=== PATIENT | male | born 1945 | race Caucasian/White ===

== ENCOUNTER 2017-09-26 11:06 | Observation (INO) | payer MEDICARE, OTHER ==
[2017-09-24 10:55] LABS: BASOPHILS % 0.5 % (0.0-1.0); EOSINOPHILS # (AUTO) 0.2 (0.0-0.4); EOSINOPHILS % 3.2 % (0.0-6.0); HEMOGLOBIN 14.5 g/dL (14.0-18.0); LYMPHOCYTES # (AUTO) 1.8 (1.0-3.2); LYMPHOCYTES % 30.2 % (18.0-39.1); MEAN CORPUSCULAR HEMOGLOBIN 30.1 pg (28-32); MEAN CORPUSCULAR VOLUME 91.3 fL (81-99); MONOCYTES # (AUTO) 0.4 (0.2-0.8); MONOCYTES % 7.3 % (4.4-11.3); NEUTROPHILS # (AUTO) 3.5 (2.1-6.9); NEUTROPHILS % 58.5 % (38.7-80.0); PLATELET COUNT 252 x10e3/uL (140-360); RED BLOOD COUNT 4.82 x10e6/uL (4.3-5.7); RED CELL DISTRIBUTION WIDTH 13.2 % (11.7-14.4)
[2017-09-24 11:09] LABS: INR 1.02; PROTHROMBIN TIME 12.6 seconds (11.9-14.5)
[2017-09-24 11:17] LABS: BLOOD UREA NITROGEN 22 mg/dL (7-26); BUN/CREATININE RATIO 19 (6-25); CALCIUM 9.2 mg/dL (8.4-10.2); CARBON DIOXIDE 27 mmol/L (22-29); CHLORIDE 106 mmol/L (98-107); CREATININE, SERUM 1.18 mg/dL (0.72-1.25); EST GLOMERULAR FILTRATION RATE > 60 ML/MIN (60-); GLUCOSE 117 mg/dL (74-118); SODIUM 140 mmol/L (136-145)
--- NOTE | 2017-09-24 11:23 | Diagnostic Imaging Report ---
PROCEDURE: Frontal and lateral views of the chest. COMPARISON: None. INDICATIONS: PRE OPERATIVE CHEST X-RAY FOR C-SPINE SURGERY FINDINGS: Lines/tubes: None. Lungs: There is no evidence of pneumonia or pulmonary edema. 1.9 cm curvilinear opacity is seen in the left upper lobe. Adjacent to this, a linear opacity may represent soft tissue calcifications. Streaky atelectasis in the lung bases. Pleura: There is no pleural effusion or pneumothorax. Heart and mediastinum: The heart and the mediastinum are normal. Bones: No acute bony abnormality. Multilevel spondylosis of the thoracic spine IMPRESSION: 1.9 cm curvilinear or nodular opacity in the left upper lobe. If there are no prior radiographs to ensure the stability of this lesion, recommend CT of the chest for further evaluation. Dictated by: Carlos Strong M.D. on 09/24/2017 at 11:24 Electronically approved by: Carlos Strong M.D. on 09/24/2017 at 11:24
[~2017-09-26] VITALS: Ht 172.7 cm; Wt 84.5 kg
[~2017-09-26 11:06] MED LIST: ACETAMINOPHEN 1000 MG/100 ML 100 ML IV ONE; BACITRACIN 50,000 UNIT VIAL ONE; BUPIVACAINE 0.5%/EPI 30 ML SDV INJ ONE; CEFAZOLIN SOD 1 GM VIAL ONE; GELATIN SPONGE SZ 100 ONE; LIDOCAINE HCL (LTA) 4 ML SOLN ONE; THROMBIN FOR SOLN 5,000 UNIT VIAL ONE; TRICOR145 MG PO
--- OUTSIDE RECORDS SUMMARY | 2017-09-26 11:09 | XMS REPORT ---
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 Allergies, Adverse Reactions, Alerts This patient has no known allergies or adverse reactions. Medications This patient has no known medications. Results Test Description Test Time Test Comments Text Results Atomic Results Result Comments CHEST 2 VIEWS [place] [address] Patient Name: DRAKE JASSO MR #: [id number] : 1945 Age/Sex: 71/M Req #: [id number] Adm Physician: Ordered by: STEVEN SINGLETARY MD Report #: [id number] Location: OR Room/Bed: Procedure: [id number] DX/CHEST 2 VIEWS Exam Date: 09/24/17 Exam Time: 1030 REPORT STATUS: Signed PROCEDURE: Frontal and lateral views of the chest. COMPARISON: None. INDICATIONS: PRE OPERATIVE CHEST X- RAY FOR C-SPINE SURGERY FINDINGS: Lines/tubes: None. Lungs: There is no evidence of pneumonia or pulmonary edema. 1.9 cm curvilinear opacity is seen in the left upper lobe. Adjacent to this, a linear opacity may represent soft tissue calcifications. Streaky atelectasis in the lung bases. Pleura: There is no pleural effusion or pneumothorax. Heart and mediastinum: The heart and the mediastinum are normal. Bones: No acute bony abnormality. Multilevel spondylosis of the thoracic spine IMPRESSION: 1.9 cm curvilinear or nodular opacity in the left upper lobe. If there are no prior radiographs to ensure the stability of this lesion, recommend CT of the chest for further evaluation. Dictated by: Al Strong M.D. on 09/24/2017 at 11:24 Electronically approved by: Al Strong M.D. on 09/24/2017 at 11:24 Dictated By: AL STRONG MD [id number] Transcribed By: BARBARA on 09/24/17 1124 COPY TO: STEVEN SINGLETARY MD
[2017-09-26] MEDS ORDERED: MAGNESIUM/ALUMINUM/SIMETHICONE 30 ML UDC PO PRN (11:45)
[2017-09-26] MEDS ORDERED: HYDROMORPHONE 2MG/ML INJ IV PRN (11:45)
[2017-09-26] MEDS ORDERED: CEPACOL SORE THROAT LOZENGES PO PRN (11:45)
[2017-09-26] MEDS ORDERED: ZOLPIDEM TARTRATE 5 MG TAB PO PRN (11:45)
[2017-09-26] MEDS ORDERED: OXYCODONE/ACETAMINOPHEN 5-325 1 EACH TABLET PO PRN (11:45)
[2017-09-26] MEDS ORDERED: ONDANSETRON HCL INJ 2 MG/ML VIAL IV PRN (11:45)
[2017-09-26] MEDS ORDERED: ACETAMINOPHEN 325 MG TAB PO PRN (11:45)
[2017-09-26] MEDS ORDERED: PROMETHAZINE HCL (IM) 25 MG/ML VIAL IM PRN (11:45)
[2017-09-26] MEDS ORDERED: MORPHINE SULFATE 5 MG/ML VIAL IM PRN (11:45)
[2017-09-26] MEDS ORDERED: CARISOPRODOL 350 MG TAB PO PRN (11:45)
[2017-09-26] MEDS ORDERED: ONDANSETRON HCL 4 MG ORAL DISINTEGRATING TAB PO PRN (12:00)
[2017-09-26] MEDS ORDERED: MORPHINE SULFATE 2 MG/ML SYR IM PRN (12:15)
[2017-09-26 13:00] VITALS: BP 150/82
[2017-09-26] MEDS: LACTATED RINGER'S 1,000 ML IV SCH ×2 (13:30→19:58)
[2017-09-26] MEDS: CEFAZOLIN SOD 1 GM VIAL IV SCH ×2 (13:30→21:15)
[2017-09-26] MEDS ORDERED: CEFAZOLIN SOD 1 GM/NS 50ML 50 ML IV SCH (14:00)
[2017-09-26 14:02] VITALS: BP 150/82
--- NOTE | 2017-09-26 15:03 | Operative Report ---
DATE OF PROCEDURE: September 26, 2017 PREOPERATIVE DIAGNOSIS: C6-7 disk herniation and spondylosis with radiculopathy, M50.123. POSTOPERATIVE DIAGNOSIS: C6-7 disk herniation and spondylosis with radiculopathy, M50.123. PROCEDURES 1. C6-7 anterior cervical diskectomy and microsurgical osteophyte resection and allograft fusion, 73022. 2. Preparation of MTF corticocancellous allograft, 71005. 3. C6-7 anterior cervical plating with Synthes ZPN plate, 58359. ANESTHESIA: General. INDICATIONS: Patient is a man who presents with left C7 radiculopathy due to a left-sided disk herniation superimposed on disk osteophyte complex at C6-7. He was taken to operating room for C6-7 anterior cervical decompression and fusion. PROCEDURE IN DETAIL: After induction of general anesthesia, the patient was placed on the operating table in supine position. The right side of the neck was prepped and draped in sterile fashion. The fluoroscopic C-arm was positioned in cross-table lateral orientation. A small transverse incision was created on right side of the neck superimposed on the C6-7 disk space as determined by fluoroscopy. The platysma was divided in line with the incision. A subplatysmal dissection was carried out. An avascular plane of dissection was developed medial to sternocleidomastoid muscle and was followed medially to carotid sheath to the anterior border of the cervical spine. The deep cervical fascia was opened. The esophagus was retracted to the left. The attachments of longus colli muscles to the anterolateral aspects of vertebral bodies of C6 and C7 were divided. The anterior longitudinal ligament was resected. [place] posts were inserted to C6 and C7. The [place] distractor was used to distract the disk space. The anterior annulus of the disk was incised with a #11 blade and the contents of the disk were thoroughly evacuated with angled curettes and pituitary rongeurs. The posterior osteophytes were meticulously drilled with a 2 mm cutting bur on a high-speed drill until they were completely removed. The posterior annulus of the disk, herniated disk material, and the posterior longitudinal ligament were resected layer by layer until the dura was fully exposed and decompressed. The medial aspects of the uncinate processes were resected bilaterally to further expose and decompress the origins of the corresponding nerve roots. After satisfactory decompression had been achieved, the endplates were prepared for fusion. A piece of dry cortical iliac crest allograft was cut to size and shape of the disk space and was inserted into the space under distraction and fluoroscopic guidance. The distraction was released and the distraction posts were removed. The disk space was sized and found to be 8 mm in height. A piece of MTF corticocancellous allograft measuring 8 mm in thickness was selected and prepared in saline and loaded onto a Synthes ZPN plate. The construct was inserted into the disk space under distraction and fluoroscopic guidance and tapped in place until the anterior margin of the plate was flush with the anterior margin of the vertebral bodies. The plate was then screwed to the endplates of C6 and C7 with 2 pairs of 14 mm screws. All screws were locked and excellent construct was obtained. The wound was copiously irrigated with Bacitracin solution. Meticulous hemostasis was secured. Retractor was removed. The platysma was closed with 3-0 Vicryl sutures. The skin was closed with 4-0 Monocryl sutures in a subcuticular fashion. Steri-Strips and dry dressing were applied. The patient was awakened, extubated, and taken to postanesthesia care unit in stable condition. No intraoperative complications were encountered. Estimated blood loss was 10 mL. Job#: [id number] NEREIDA
[2017-09-26 15:18] VITALS: BP 146/87
[2017-09-26] MEDS ORDERED: SEVOFLURANE INHAL SOLN 250 ML PEN BTL ONE (17:48)
[2017-09-26] MEDS ORDERED: PROPOFOL IV EMULSION 10 MG/ML 20 ML VIAL ONE (17:48)
[2017-09-26] MEDS ORDERED: LIDOCAINE HCL 2% JELLY 5 ML TUBE ONE (17:48)
[2017-09-26] MEDS ORDERED: ONDANSETRON HCL INJ 2 MG/ML VIAL ONE (17:48)
[2017-09-26] MEDS ORDERED: ROCURONIUM BROMIDE 10 MG/ML 5ML VIAL ONE (17:48)
[2017-09-26] MEDS ORDERED: DEXAMETHASONE SOD PHOS INJ 4 MG/ML VIAL ONE (17:48)
[2017-09-26] MEDS ORDERED: NEOSTIGMINE 5 MG/5ML SYR ONE (17:48)
[2017-09-26] MEDS ORDERED: LIDOCAINE HCL 2% LOCAL INJ 5 ML SDV VIAL INJ ONE (17:48)
[2017-09-26] MEDS ORDERED: GLYCOPYRROLATE INJ 1MG/ 5 ML SYR ONE (17:48)
[2017-09-26] MEDS ORDERED: FENTANYL CITRATE/PF 100MCG/2 ML INJ ONE (18:01)
[2017-09-26] MEDS ORDERED: MIDAZOLAM HCL 2 MG/2 ML VIAL ONE (18:01)
[2017-09-26 19:15] VITALS: BP 132/71
[2017-09-26 20:35] VITALS: BP 132/71
[2017-09-27 00:05] VITALS: BP 117/68
[2017-09-27] MEDS: LACTATED RINGER'S 1,000 ML IV SCH (04:18)
[2017-09-27 05:20] VITALS: BP 125/73
[2017-09-27] MEDS: CEFAZOLIN SOD 1 GM VIAL IV SCH (06:05)
--- NOTE | 2017-09-27 07:18 | Diagnostic Imaging Report ---
PROCEDURE: X-RAY CERVICAL SPINE, TWO VIEWS COMPARISON:None. INDICATIONS:SURGERY ON C-SPINE 09/26/17 FINDINGS: See conclusion. CONCLUSION: AP and lateral views of the cervical spine from the skull base to the bottom of C7 show postoperative changes related to intervertebral disc spacer placement at C6-C7. Hardware is appropriately positioned. The visualized vertebral bodies are well-aligned. Mild degenerative disc changes at C5-6. There is mild pre-vertebral soft-tissue swelling consistent with recent surgery. Dictated by: Rl Aleman M.D. on 09/27/2017 at 7:19 Electronically approved by: Rl Aleman M.D. on 09/27/2017 at 7:19
[2017-09-27] MEDS ORDERED: NORCO 7.5-3251 EACH PO (07:31)
[2017-09-27 08:25] VITALS: BP 109/70
[2017-09-27] MEDS ORDERED: FENOFIBRATE 145 MG TAB PO SCH (09:00)
[2017-09-27 09:29] VITALS: BP 109/70
== END 2017-09-27 09:58 | disposition home or self-care (01) ==
LOC: OR 11:06 → IMCU 12:24
PROVIDERS: ADMIT Neurological Surgery; ATTEND Neurological Surgery
DX: M50.123 Cervical disc disorder at C6-C7 level with radiculopathy (principal); E78.5 Hyperlipidemia, unspecified
CPT/HCPCS: 20931; 22551; 22845; 36415; 71046; 72040; 77003; 80048; 85025; 85610; 85730; 86850; 86900; 88304; 93005; C1713 ×2; C9359; G0378 ×2; J0690 ×2; J1100; J2001 ×2; J2250; J2270; J2405; J7120

== ENCOUNTER → 2019-11-06 | Day surgery (SDC) | payer MEDICARE, OTHER ==
[2019-11-03 14:43] LABS: BASOPHILS % 0.7 % (0.0-1.0); EOSINOPHILS # (AUTO) 0.1 (0.0-0.4); EOSINOPHILS % 2.3 % (0.0-6.0); HEMOGLOBIN 13.9 g/dL (14.0-18.0); LYMPHOCYTES # (AUTO) 2.2 (1.0-3.2); LYMPHOCYTES % 36.1 % (18.0-39.1); MEAN CORPUSCULAR HEMOGLOBIN 29.1 pg (28-32); MEAN CORPUSCULAR HGB CONC 32.3 g/dL (31-35); MEAN CORPUSCULAR VOLUME 90.1 fL (81-99); MONOCYTES # (AUTO) 0.5 (0.2-0.8); MONOCYTES % 7.7 % (4.4-11.3); NEUTROPHILS # (AUTO) 3.2 (2.1-6.9); PLATELET COUNT 238 x10e3/uL (140-360); RED BLOOD COUNT 4.77 x10e6/uL (4.3-5.7); RED CELL DISTRIBUTION WIDTH 13.6 % (11.7-14.4)
--- NOTE | 2019-11-03 15:39 | Diagnostic Imaging Report ---
X-ray chest PA and lateral views Comparison: None History: Preop Findings: Central airways unremarkable. Borderline heart size. Aorta is prominent and the descending thoracic segment. There is no pleural effusion or pneumothorax. Lung albarado are remarkable for multiple nodular densities on the left side. One in the lower lung zone measures approximately 4.3 mm. Another ovoid branching density measures 25.5 mm. There is another curvilinear opacity in the left midlung zone. Another nodular opacity is seen in the left midlung zone measuring approximately 5 mm. These could represent granulomas and/or hamartomas. A CT of the chest is recommended when possible for further evaluation. Regional bones are remarkable for degenerative changes of the spine including cervicothoracic spinal fusion. Upper abdomen is unremarkable. Impression: No acute cardiopulmonary disease. Several nodules in the left lung. When possible, CT of the chest should be obtained to further characterize these nodules. Signed by: Ricki Martin MD on 11/03/2019 3:36 PM
[~2019-11-06] MED LIST changes: -ACETAMINOPHEN 1000 MG/100 ML 100 ML IV ONE; -BACITRACIN 50,000 UNIT VIAL ONE; -BUPIVACAINE 0.5%/EPI 30 ML SDV INJ ONE; +BUPIVACAINE HCL 0.5% INJ 30 ML VIAL INJ ONE; -CEFAZOLIN SOD 1 GM VIAL ONE; +CEFAZOLIN SOD 1 GM/NS 50ML 50 ML IV ONE; +DEXAMETHASONE SOD PHOS INJ 4 MG/ML VIAL ONE; +ETOMIDATE 2 MG/ML 10 ML INJ IV ONE; -GELATIN SPONGE SZ 100 ONE; -LIDOCAINE HCL (LTA) 4 ML SOLN ONE; +LIDOCAINE HCL 2% LOCAL INJ 5 ML SDV VIAL INJ ONE; +MUPIROCIN 2% OINT 22 GM TUBE ONE; +NORCO 7.5-3251 EACH PO; +ONDANSETRON HCL INJ 2MG/ML 2ML 2 MG/ML VIAL ONE; +SEVOFLURANE INHAL SOLN 250 ML PEN BTL ONE; -THROMBIN FOR SOLN 5,000 UNIT VIAL ONE
[2019-11-06 08:25] VITALS: BP 132/84
--- NOTE | 2019-11-06 14:30 | Operative Report ---
DATE OF PROCEDURE: 11/06/2019 SURGEON: Joshua Do MD PREOPERATIVE DIAGNOSIS: Stenosing tenosynovitis of right long finger. POSTOPERATIVE DIAGNOSIS: Stenosing tenosynovitis of right long finger. OPERATION PERFORMED: Tenovaginotomy of right long finger. ANESTHESIA: General. HISTORY: The patient is a 74-year-old right hand-dominant male who presents with stenosing tenosynovitis of the right long finger that is recalcitrant to conservative treatment. The risks, benefits, and alternatives of treatment were discussed with the patient and they are prepared to undergo the procedure as outlined. DESCRIPTION OF PROCEDURE: The patient was brought to the operating theater. After the induction of adequate general/regional anesthesia, the patient was prepped and draped in a supine position. A time out was performed by the entire operating room team. An oblique incision was marked out over the A1 hamzah of the right long finger. The upper extremity was exsanguinated, and a tourniquet was inflated to a pressure of 250 mmHg. The incision was made through the skin and subcutaneous tissues. All venous tributaries were controlled with bipolar cautery. The incision was deepened through the palmar tissues. The neurovascular bundles on the radial and ulnar sides of the flexor tendon sheath were identified and retracted away from the flexor tendon sheath and preserved. The A1 hamzah of the affected finger was identified and incised longitudinally, taking care to protect and preserve the flexor tendons within the sheath. After the complete length of the hamzah had been transected, the tendons were placed in a range of motion. There was noted to be good motion without any locking. The wound was then copiously irrigated with bacteriostatic saline and closed with 5-0 nylon in an interrupted horizontal mattress fashion. A Marcaine field block was performed at the operative site. The tourniquet was deflated. All the fingers pinked up nicely. A sterile bulky conforming bandage was applied to the hand, and the patient was returned to the recovery room in satisfactory condition and was discharged with a postoperative instruction sheet as well as a followup appointment. Joshua Do MD ER/MODL /[id number]
== END | disposition home or self-care (01) ==
LOC: OR 05:14
PROVIDERS: ATTEND Plastic Surgery
DX: M65.331 Trigger finger, right middle finger (principal); Z88.8 Allergy status to other drugs, medicaments and biological substances; Z01.810 Encounter for preprocedural cardiovascular examination; Z01.812 Encounter for preprocedural laboratory examination; Z01.818 Encounter for other preprocedural examination; Z11.59 Encounter for screening for other viral diseases
CPT/HCPCS: 26055; 36415; 71046; 85025; 87635; 93005; J0690